=== PATIENT | female | born 1965 | race Caucasian/White ===

== ENCOUNTER 2020-08-06 15:32 | Outpatient (CLI) | payer OTHER, SELFPAY ==
--- NOTE | ~2020-08-06 | MM_ITS ---
EXAMINATION: MM screening nereida BI w ciro HISTORY: Screening mammogram TECHNIQUE: Craniocaudal and mediolateral oblique 3-D tomosynthesis images were obtained and synthetic 2-D images were generated. CAD analysis was submitted and interpreted. COMPARISON: August 01, 2018, July 28, 2017 bilateral digital screening mammogram examinations BREAST PARENCHYMAL COMPOSITION: The breasts are extremely dense, which lowers the sensitivity of mamm ography. FINDINGS: There is no evidence of suspicious mass, calcification, or architectural distortion to sugg est malignancy in either breast. There has been no suspicious interval change. IMPRESSION: 1. No mammographic evidence of malignancy. 2. Recommend routine screening mammography in one year. BI-RADS Category 1: Negative Reviewed, dictated and finalized at location A. 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
== END 2020-08-06 15:33 | disposition home or self-care (01) ==
PROVIDERS: PCP Family Medicine; Visit Provider Family Medicine
DX: Z12.31 Encounter for screening mammogram for malignant neoplasm of breast (principal)
CPT/HCPCS: 77063; 77067

== ENCOUNTER 2021-07-02 08:42 | Outpatient (CLI) | payer OTHER, SELFPAY ==
--- NOTE | ~2021-07-02 | XR_ITS ---
XR chest 2V DATE: 07/02/2021 08:54 INDICATION: Chest pain TECHNIQUE: PA and lateral views COMPARISON: None FINDINGS: Bilateral hyperinflation. No pulmonary infiltrate or consolidation, pleural effusion or pul monary vascular congestion or pneumothorax. Normal heart size. No hilar or mediastinal enlargement. Included skeletal structures are unremarkable. IMPRESSION: Moderate hyperinflation; no active cardiopulmonary disease Reviewed, dictated and finalized at location A. 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
== END 2021-07-02 08:43 | disposition home or self-care (01) ==
LOC: ANHIMG 08:45
PROVIDERS: PCP Family Medicine; Visit Provider Family Medicine
DX: R07.9 Chest pain, unspecified (principal); R91.8 Other nonspecific abnormal finding of lung field
CPT/HCPCS: 71046

== ENCOUNTER 2021-08-24 10:45 | Outpatient (CLI) | payer OTHER, SELFPAY ==
--- NOTE | ~2021-08-24 | MM_ITS ---
EXAMINATION: MM screening [facility] BI w ciro HISTORY: Screening mammogram TECHNIQUE: Craniocaudal and mediolateral oblique 3-D tomosynthesis images were obtained and synthetic 2-D images were generated. CAD analysis was submitted and interpreted. COMPARISON: 08/06/2020, 08/01/2018 BREAST PARENCHYMAL COMPOSITION: The breasts are extremely dense, which lowers the sensitivity of mamm ography. FINDINGS: There is no evidence of suspicious mass, calcification, or architectural distortion to sugg est malignancy in either breast. There has been no suspicious interval change. IMPRESSION: 1. No mammographic evidence of malignancy. 2. Recommend routine screening mammography in one year. BI-RADS Category 1: Negative Reviewed, dictated and finalized at location A.
== END 2021-08-24 10:46 | disposition home or self-care (01) ==
LOC: ANHIMG 10:47
PROVIDERS: PCP Family Medicine; Visit Provider Family Medicine
DX: Z12.31 Encounter for screening mammogram for malignant neoplasm of breast (principal)
CPT/HCPCS: 77063; 77067

== ENCOUNTER 2021-09-02 01:02 | Day surgery (SDC) | payer OTHER, SELFPAY ==
[2021-08-19 14:05] VITALS: BMI 19.3
[2021-09-02 06:51] VITALS: BP 100/66; PULSE 88; RESP 18; TEMP 36.1; O2SAT 96
--- NOTE | 2021-09-02 06:57 | WPDANESEPPF ---
Anes - Initial Pre Proc Eval Procedure: Operation Date: 09/02/21 08:00 Proposed Procedures p Screening Colonoscopy - Bruce Ludwig MD Date/Time: 09/02/21 06:57 Surgeon: Bruce Ludwig MD Pre Op Diagnosis: fam hx of colon ca Patient Data Age: 55 Gender: F Height: 1.57 m Weight: 46.7 kg Last Vital Signs Temp 36.1 C L 09/02/21 06:51 Pulse 88 09/02/21 06:51 Resp 18 09/02/21 06:51 BP 100/66 09/02/21 06:51 Pulse Ox 96 09/02/21 06:51 Allergies Allergy/AdvReac Type Severity Reaction Status Date / Time No Known Allergies Allergy Verified 09/02/21 06:50 Home Medications Medication Instructions Recorded Confirmed Type No Home Medications 08/19/21 08/19/21 History Patient hx anesthesia problems: none Family hx anesthesia problems: none Results Review: All pre-operative results and documents have been reviewed as part of the pre-operative evaluation. [facility] Surgical History Surgical History H/O: hysterectomy (~2013) Family History Family History Mother Family history of elevated blood lipids Sibling Family history of elevated blood lipids Father Family history of elevated blood lipids Family history of malignant neoplasm Grandparent Family history of malignant neoplasm Other Family history of hypercholesterolemia Social History Social History Smoking status: Never smoker Alcohol intake: current Drinks per week: 2 Living arrangements: alone Spiritual care concerns: No Anes - Eval Final PreProcedure Day of Procedure 09/02/21 06:57 Patient weight: normal Heart: regular rate and rhythm Lungs: clear to auscultation and normal air movement Airway: Mallampati scale class II Neurological: alert and oriented Last oral intake: >/= 8 hours ASA classification: II Emergent: no Anesthetic plan: proceed Anesthesia type and monitoring: general GIVS and standard monitoring Results Review: All pre-operative results and documents have been reviewed as part of the pre-operative evaluation. Informed Consent: The patient's anesthetic plan and its attendant risks and benefits were discussed with the patient/family/POA. Questions were solicited and answers provided to the satisfaction of the patient/family/POA.
[2021-09-02] MEDS: LACTATED RINGERS 1,000 ML 150 ML IV CONT (07:00)
--- NOTE | 2021-09-02 07:23 | P.CONGI_ITS ---
Assessment and Plan Assessment and plan (1) Family history of colon cancer in mother: Code(s): Z80.0 - Family history of malignant neoplasm of digestive organs Status: Acute Assessment and Plan: Patient's mother and paternal grandmother have had colon cancer. Plan is for surveillance colonoscopy now and consider this at 5 year intervals in the future. GI Consult Note Consult date/time: 09/02/21 07:23 HPI: Iris Raymundo is a 55 year old female Presents for screening colonoscop y. Patient reports that her current weight appetite and bowel movements are normal. She denies abdominal pain. She has had no bleeding. Family history is significant that her mother had colon cancer as well as her paternal grandmother patient had last colonoscopy 2016 was reported as unremarkable. She presents today for screening colonoscopy. Review of Systems Review of Systems: All systems reviewed & are unremarkable except as noted in HPI and below PMFSH Surgical History Surgical History H/O: hysterectomy (~2013) Family History Family History Mother Family history of elevated blood lipids Sibling Family history of elevated blood lipids Father Family history of elevated blood lipids Family history of malignant neoplasm Grandparent Family history of malignant neoplasm Other Family history of hypercholesterolemia Social History Social History Smoking status: Never smoker Alcohol intake: current Drinks per week: 2 Living arrangements: alone Spiritual care concerns: No Meds Home Medications and Allergies Home Medications Medication Instructions Recorded Confirmed Type No Home Medications 08/19/21 08/19/21 History Allergies Allergy/AdvReac Type Severity Reaction Status Date / Time No Known Allergies Allergy Verified 09/02/21 06:50 Vital Signs Vital Signs - 24 hr 09/02/21 06:51 Temperature 97.0 F L Pulse Rate 88 Respiratory Rate 18 Blood Pressure 100/66 Pulse Oximetry 96 Exam Narrative: Physical exam reveals patient to be alert. Vital signs stable. HEENT exam is unremarkable. Patient is anicteric. Lungs are clear to auscultation and percussion. Heart is without murmur or extra sounds. Abdominal exam bowel sounds are present soft nontender with no organomegaly. Digital external rectal exam is normal.
[2021-09-02 08:28] VITALS: BP 98/61; PULSE 74; RESP 21; O2SAT 100
[2021-09-02 08:38] VITALS: BP 109/66; PULSE 73; RESP 19; O2SAT 100
[2021-09-02 08:48] VITALS: BP 108/75; PULSE 73; RESP 23; O2SAT 99
== END 2021-09-02 08:53 | disposition home or self-care (01) ==
PROVIDERS: PCP Family Medicine; Visit Provider Internal Medicine Gastroenterology
PROC: 0DJD8ZZ Inspection of Lower Intestinal Tract, Via Natural or Artificial Opening Endoscopic (ICD-10-PCS; CPT 45378; principal; 2021-09-02 08:00)
DX: Z12.11 Encounter for screening for malignant neoplasm of colon (principal); K64.8 Other hemorrhoids; K57.30 Diverticulosis of large intestine without perforation or abscess without bleeding; Z80.0 Family history of malignant neoplasm of digestive organs
CPT/HCPCS: 45378; J2704; J7120

== ENCOUNTER 2022-01-27 09:40 | Outpatient (CLI) | payer OTHER, SELFPAY ==
--- NOTE | 2022-01-27 09:43 | EST_ITS ---
Patient Info Name: Iris Raymundo Age: 56 years : 1965 Gender: Female Ht: 62 in Wt: 110 lbs BSA: 1.48 m2 HR: 72 bpm Exam Date: 01/27/2022 10:12 AM [facility] Patient Status: Outpatient Admit Date: 01/27/2022 Staff Ordering Physician: Ricco Hughes PA-C Rehabilitation Consultant: Kezia Wright RDCS Attending Provider: Ricco Hughes PA-C Referring Physician: Ellen RICHARDS; Exercise Technologist: Ellyn Willard CT Exercise Physician: Tod Cardona DO Exam Type: CA stress echo Study Info Indications R07.9 - Chest pain, unspecified Treadmill exercise stress echocardiogram is performed. Summary 1. 1. Negative Kush exercise stress test for ischemic ST changes by ECG criteria. 2. 2. Excellent functional capacity, achieving 10 METs of workload. 3. 3. Appropriate HR response to exercise. 4. 4. Appropriate HR recovery at 1 minute post exercise. 5. 5. Negative stress echocardiogram for ischemia by wall motion analysis. 6. 6. Patient informed of the above results. Stress Echo Findings Left Ventricle Appropriate increase in LV endocardial thickening with systole. Appropriate augmentation of contractility with systole. No wall motion abnormality. Left Ventricle Normal LV systolic function, no wall motioni abnormality. Protocol: Kush Stress ECG Details Stage: REST Duration (min): 7 min : 53 sec Speed (mph): 0.0 Grade (%): 0 HR (bpm): 74 SBP (mmHg): 100 DBP (mmHg): 69 METS: --- Stage: REST Duration (min): 25 min : 13 sec Speed (mph): 0.0 Grade (%): 0 HR (bpm): 92 SBP (mmHg): 100 DBP (mmHg): 69 METS: --- Stage: STAGE 1 Duration (min): 1 min : 0 sec Speed (mph): 1.7 Grade (%): 10 HR (bpm): 95 SBP (mmHg): 100 DBP (mmHg): 69 METS: --- Stage: STAGE 1 Duration (min): 2 min : 0 sec Speed (mph): 1.7 Grade (%): 10 HR (bpm): 106 SBP (mmHg): 100 DBP (mmHg): 69 METS: --- Stage: STAGE 1 Duration (min): 3 min : 0 sec Speed (mph): 1.7 Grade (%): 10 HR (bpm): 117 SBP (mmHg): 119 DBP (mmHg): 70 METS: --- Stage: STAGE 2 Duration (min): 1 min : 0 sec Speed (mph): 2.5 Grade (%): 12 HR (bpm): 120 SBP (mmHg): 119 DBP (mmHg): 70 METS: --- Stage: STAGE 2 Duration (min): 2 min : 0 sec Speed (mph): 2.5 Grade (%): 12 HR (bpm): 125 SBP (mmHg): 126 DBP (mmHg): 79 METS: --- Stage: STAGE 2 Duration (min): 3 min : 0 sec Speed (mph): 2.5 Grade (%): 12 HR (bpm): 132 SBP (mmHg): 126 DBP (mmHg): 79 METS: --- Stage: STAGE 3 Duration (min): 1 min : 0 sec Speed (mph): 3.4 Grade (%): 14 HR (bpm): 143 SBP (mmHg): 161 DBP (mmHg): 88 METS: --- Stage: STAGE 3 Duration (min): 2 min : 0 sec Speed (mph): 3.4 Grade (%): 14 HR (bpm): 151 SBP (mmHg): 161 DBP (mmHg): 88 METS: --- Stage: STAGE 3 Duration (min): 3 min : 0 sec Speed (mph): 3.
== END 2022-01-27 09:41 | disposition home or self-care (01) ==
LOC: ANHCARD 09:41
PROVIDERS: PCP Family Medicine; Visit Provider Physician Assistant
DX: R07.9 Chest pain, unspecified (principal)
CPT/HCPCS: 93351

== ENCOUNTER 2022-09-08 08:30 | Outpatient (CLI) | payer OTHER, SELFPAY ==
--- NOTE | ~2022-09-08 | MM_ITS ---
EXAMINATION: MM screening nereida BI w ciro HISTORY: Screening TECHNIQUE: Craniocaudal and mediolateral oblique 3-D tomosynthesis images were obtained and synthetic 2-D images were generated. CAD analysis was submitted and interpreted. COMPARISON: Comparison to multiple prior studies sequentially, with oldest reviewed study dated 04/12. BREAST PARENCHYMAL COMPOSITION: The breasts are extremely dense, which lowers the sensitivity of mamm ography FINDINGS: There is a focal asymmetry upper inner quadrant of the left breast on CC view. The right br east is stable without evidence for malignancy. IMPRESSION: 1. New focal left breast asymmetry, upper inner quadrant. 2. Additional mammographic views and possible breast ultrasound are recommended. BI-RADS Category 0: Incomplete: Needs additional imaging evaluation. Reviewed, dictated and finalized at location A. IMPRESSION: 1. New focal left breast asymmetry, upper inner quadrant. 2. Additional mammographic views and possible breast ultrasound are recommended . BI-RADS Category 0: Incomplete: Needs additional imaging evaluation.
== END 2022-09-08 08:31 | disposition home or self-care (01) ==
PROVIDERS: PCP Family Medicine; Visit Provider Family Medicine
DX: Z12.31 Encounter for screening mammogram for malignant neoplasm of breast (principal); R92.8 Other abnormal and inconclusive findings on diagnostic imaging of breast
CPT/HCPCS: 77063; 77067

== ENCOUNTER 2022-10-04 11:38 | Outpatient (CLI) | payer OTHER, SELFPAY ==
--- NOTE | ~2022-10-04 | MMUS_ITS ---
EXAMINATION: MM diagnostic nereida LT w ciro, US breast LT complete HISTORY: New upper inner quadrant left breast mammographic asymmetry TECHNIQUE: Additional 3-D tomosynthesis images of the left breast were performed and synthetic 2-D im ages were generated. CAD analysis was submitted and interpreted. High resolution left complete breast ultrasound examination including all four quadrants and subareolar area was performed. COMPARISON: 09/08/2022 bilateral screening mammogram FINDINGS: MAMMOGRAPHIC FINDINGS: There is extremely dense breast tissue, which may obscure masses. No suspicious mass, architectural distortion, malignant calcification, skin thickening or retraction of the left breast is detected. ULTRASOUND: 12:00 near nipple: There is an 11 mm simple cyst. 3:00 2 cm from nipple: There is a 5.8 mm simple cyst. 8:00 3 cm from nipple: There is a simple 3.5 mm cyst. No suspicious mass or shadowing of the left breast is detected. IMPRESSION: 1. Benign findings; simple cysts 2. Routine annual mammographic screening is recommended. BIRADS Category 2: Benign Reviewed, dictated and finalized at location A. IMPRESSION: 1. Benign findings; simple cysts 2. Routine annual mammographic screening is recommended. BIRADS Category 2: Benign
== END 2022-10-04 11:39 | disposition home or self-care (01) ==
PROVIDERS: PCP Family Medicine; Visit Provider Family Medicine
DX: N60.02 Solitary cyst of left breast (principal)
CPT/HCPCS: 76641; 77061; 77065; G0279

== ENCOUNTER 2024-01-11 14:42 | Outpatient (CLI) | payer OTHER, SELFPAY ==
--- NOTE | ~2024-01-11 | MM_ITS ---
EXAMINATION: MM screening nereida BI w ciro HISTORY: Screening TECHNIQUE: Craniocaudal and mediolateral oblique 3-D tomosynthesis images were obtained and synthetic 2-D images were generated. CAD analysis was submitted and interpreted. COMPARISON: Comparison to multiple prior studies sequentially, with oldest reviewed study dated 07/28. BREAST PARENCHYMAL COMPOSITION: Dense: The breasts are heterogeneously dense, which may obscure small masses FINDINGS: There is no evidence of suspicious mass, calcification, or architectural distortion to sugg est malignancy in either breast. There has been no suspicious interval change. IMPRESSION: 1. No mammographic evidence of malignancy. 2. Recommend routine screening mammography in one year. BI-RADS Category 1: Negative Reviewed, dictated and finalized at location B.
== END 2024-01-11 14:43 | disposition home or self-care (01) ==
LOC: ANHIMG 14:43
PROVIDERS: Visit Provider Family Medicine
DX: Z12.31 Encounter for screening mammogram for malignant neoplasm of breast (principal)
CPT/HCPCS: 77063; 77067

== ENCOUNTER 2025-02-28 09:29 | Outpatient (CLI) | payer OTHER, SELFPAY ==
--- NOTE | ~2025-02-28 | MM_ITS ---
EXAMINATION: MM screening nereida BI w ciro HISTORY: Screening TECHNIQUE: Craniocaudal and mediolateral oblique 3-D tomosynthesis images were obtained and synthetic 2-D images were generated. CAD analysis was submitted and interpreted. COMPARISON: Comparison to multiple prior studies sequentially, with oldest reviewed study dated , 08/01/2018 BREAST PARENCHYMAL COMPOSITION: The breasts are heterogeneously dense, which may obscure small masses. FINDINGS: There is no evidence of suspicious mass, calcification, or architectural distortion to suggest malignancy in either breast. IMPRESSION: 1. No mammographic evidence of malignancy. 2. Recommend routine screening mammography in one year. BI-RADS Category 1: Negative Reviewed, dictated and finalized at location B.
--- OUTSIDE RECORDS SUMMARY | 2025-02-28 09:33 | XMS_ITS | Clinical Summary ---
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 Role Phone Unavailable Primary Care Provider Unavailabl e Social History Tobacco Use Types Packs/Day Years Used Date Smoking Tobacco: Never Assessed Comments Unknown Sex and Gender Information Value Date Recorded Sex Assigned at Not on file Legal Sex Female 11:33 AM CDT Gender Identity Not on file Sexual Orientation Not on file Plan of Treatment Health Maintenance Due Date Last Done Comments Cervical Cancer Screening Pa p Smear (Age 30 to 64) Every 3 Years 1965 Colorectal Cancer Screening Colonoscopy (10 Years) 1965 Annual Physical 09/09/1967 Hepatitis C 1982 DTaP, Tdap and Td Vaccines ( 1 - Tdap) 09/09/1983 Cervical Cancer Screening Pa p with HPV Testing (Age 30 to 64) Every 5 Years 1994 Cervical Cancer Screening with HPV 1994 Mammogram Screening 2004 Pneumococcal Vaccine: 50+ Ye ars (1 of 1 - PCV) 2014 Zoster Vaccines (1 of 2) 2014 COVID-19 Vaccine ( - 2023-2 5 season) 2025 RSV Immunization or 60+ Years (1 - 1-dose 75+ series) 09/09/2039 Meningococcal B Vaccine Aged Out No l onger eligible based on patient's age to complete this topic Meningococcal Vaccine Aged Out No katarina krystal eligible based on patient's age to complete this topic RSV Immunizations Under 20 Months Aged Out No longer eligible based on patient's age to complete this topic
--- OUTSIDE RECORDS SUMMARY | 2025-02-28 09:33 | XMS_ITS | Clinical Summary ---
Author Organization 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 Rodrigo Guerrero is not up to date on screening tests. She is in need of Breast cancer screening, Cholesterol screening and Cervical cancer screening. She is not up to date on needed preventative vaccinations; She is in need of Influenza, Zoster and Covid-19 (booster). We discussed healthy lifestyle habits, educational material has been given. Medications reviewed, changes documented as per the medical record and discussed with patient along with risks vs benefits. Labs as ordered Will get old records Planning on gyne well woman in August Mammogram ordered (also in August) Respiratory symptoms Immunizations Immunization Administration Dates Next Due Influenza, Quadrivalent, Kristine l Culture-based MDCK, Antibiotic Free, Intramuscular 03/07/2019 Influenza, Quadrivalent, Spl it, Preservative Free, Intramuscular 04/01/2021,03/19/2020,05/22/2018 Influenza, Unspecified 04/13/2024 Pneumococcal Conjugate Pcv20 08/30/2022 Tdap 05/22/2018 Surgical History Surgery Date Site/Laterality Comments PARTIAL HYSTERECTOMY Only Ovaries Present. No cervix Family History Medical History Relation Name Comments No Known Problems Brother Diabetes Father Hyperlipidemia Father Cancer Mother Farrah Colon cancer Mother Farrah Hyperlipidemia Mother Farrah Cancer Paternal Grandmother Bernadine Hyperlipidemia Sister 1 Hyperlipidemia Sister 2 Relation Name Status Comments Brother Alive Father Alive Mother Farrah Paternal Grandmother Bernadine Alive Sister 1 Alive Sister 2 Alive Social History Tobacco Use Types Packs/Day Years Used Date Smoking Tobacco: Never Smokeless Tobacco: Never Tobacco Cessation:Counseling Given: Not Answered AUDIT-C Answer Date Recorded Q1: How often do you have a drink containing alc ohol? 2-4 times a month 06/30/2022 Q2: How many drinks containi ng alcohol do you have on a typical day when you are drinking? 3 or 4 06/30/2022 Q3: How often do you have si x or more drinks on one occasion? 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 Not on file Not on file Not on file Obstetrics History Last Filed Vital Signs Vital Sign Reading Time Taken Comments Blood Pressure 98/62 10/10/2024 9:39 AM CDT Pulse 77 10/10/2024 9:39 AM CDT Temperature 36.6 C (97.8 F) 10/10/2024 9:39 AM CDT Respiratory Rate 14 08/29/2024 9:56 AM CDT Oxygen Saturation 99% 10/10/2024 9:39 AM CDT Inhaled Oxygen Concentration - - Weight 53.1 kg (117 lb) 10/10/2024 9:39 AM CDT Height 160 cm (5' 3) 10/10/2024 9:39 AM CDT Body Mass Index 20.73 10/10/2024 9:39 AM CDT Plan of Treatment Health Maintenance Due Date Last Done Comments Hepatitis B Screening 1982 Breast Cancer Screening-Mammogram 01/10/2025 01/11/2024, 2022, 08/24/2021 Covid-19 Vaccine ( season) 2025 09/03/2020, 08/11/2020 Influenza Vaccine (#1) 2025 4, 04/01/2021, 03/19/2020, Additional history exists Regular Well Visit/Exam 18-64 08/29/2025 08/29/2024 Zoster Vaccine (1 of 2) 08/29/2025 Post poned from 2014 (Insurance / Financial) Cervical Cancer Screening 10/10/2025 10/10/2024, Depression Screening 10/10/2025 10/10/2024, 08/29/2024, 03/01/2024, Additional history exists DTaP/Tdap/Td Vaccine (2 - Td or Tdap) 05/22/2028 05/22/2018 Colon Cancer Screening-Colonoscopy 09/03/2031 09/02/2021 Hepatitis C Screening Completed 06/30/2022 Pneumococcal vaccine <65 Aged Out 08/30/2022 No longer eligible based on patient's age to complete this topic Procedures Procedure Name Priority Date/Time Associated Diagnosis Comments PAP AND HIGH RISK HPV, REFLEX TO GENOTYPING Routine 10/10/2024 11:13 AM CDT Cervical cancer screening MAMMOGRAPHY Routine 01/11/2024 2:53 PM CDT HEPATITIS C ANTIBODY Routine 06/30/2022 9:34 AM ASSEMBLER DC FIELD RING Encounter for hepatitis C screening test for low risk patient COLONOSCOPY Routine 09/02/2021 from Last 3 Months or Most Recently Relevant to Health Maintenance Results * Pap and High Risk HPV and Genotyping (Cytology Component) (10/10/2024 11:13 AM CDT) Vaginal (Pap test) 10/10/2024 11:13 AM CDT 10/10/2024 11:13 AM CDT Narrative PATHOLOGY CH - 10/17/2024 2:26 PM CDT [facility] Department of Pathology [address] [place], [place] [id number] Final Report with Addendum Note to Patients: This report may contain a detailed description of human tissue sent by a health care provider to the laboratory for pathologic evaluation. The content of this report is essential for diagnosis and may provide important critical findings. This information may be unfamiliar to patients to review without a medical professional present. It is advised that the patient review this report in the presence of a health care provider who can answer questions and explain the details. Patient Name: RODRIGO GUERRERO Address: [address] [place] [address] [place] [address] Gender: F : 1965 (Age: 59) Service: Location: [facility] #: [id number] Patient Type: SPECIMEN Taken: 10/10/2024 Received: 10/10/2024 Accessioned:: 10/11/2024 Reported: 10/17/2024 Physician(s): Ji Young F.N.P. Diagnosis: SOURCE OF SPECIMEN SCREENING THIN PREP IMAGED PAP w/ HPV: STATEMENT OF ADEQUACY - Specimen satisfactory for evaluation (vaginal pap) GENERAL CATEGORIZATION: - Negative for intraepithelial lesion or malignancy Farrah Bo CT(ASCP)Eden Clemens M.D. Report Electronically Reviewed and Signed Out By Eden Clemens M.D. 10/17/2024 14:26:52Addenda: HPV Test Interpretation (Normal-Negative for High Risk HPV) HPV HR 16 vaginal- Negative HPV HR 18 vaginal- Negative HPV HR non 16/18 vaginal- Negative Comment: The following Other High Risk HPV types were not detected: 31, 33, 35, 39, 45, 51, 52, 56, 58, 59, 66, and 68 ADDITIONAL INFORMATION Testing was performed using the elif HPV assay ([employer] This test has been modified from the snuff packing machine operator's instructions. Its performance characteristics were determined by [facility] in a manner consistent with CLIA requirements. This test has not been cleared or approved by the U.S. Food and Drug Administration. Test Performed by: [address] [address] Tnt Powder Worker: Rodger Shields M.D. Ph.D.; CLIA# [id number] WILLAM Joseph(ASCP)Report Electronically Reviewed and Signed Out By WILLAM Joseph(ASCP) 10/16/2024 09:29:38 Specimen(s) Received: A: SCREENING THIN PREP IMAGED PAP w/ HPV Clinical History: Menstrual History: Hysterectomy Previous history of positive HPV The Pap test is a screening test used to aid in the detection of cervical cancer and its precursors. It should not be the sole means by which malignant and premalignant lesions are diagnosed. Both false negative and false positive results may occur. It also has poor sensitivity for the detection of endometrial lesions and should not be used to evaluate suspected endometrial abnormalities. For these reasons it is most important to obtain Pap tests at regular intervals. The performance characteristics of some immunohistochemical stains, fluorescence in-situ hybridization tests and immunophenotyping by flow cytometry cited in this report (if any) were determined by the Surgical Pathology Department at [facility] as part of an ongoing quality measurement specialist program and in compliance with federally mandated regulations drawn from the Clinical Laboratory Improvement Act of 1988 (CLIA '88). Some of these tests rely on the use of analyte specific reagents and are subject to specific labeling requirements by the US Food and Drug Administration. Such diagnostic tests may only be performed in a facility that is certified by the Department of Health and Human Services as a high complexity laboratory under CLIA '88. The FDA has determined that such clearance or approval is not necessary. This test is used for clinical purposes. It should not be regarded as investigational or for research. Nevertheless, federal rules concerning the medical use of analyte specific reagents require that the following disclaimer be attached to the report: This test was developed and its performance characteristics determined by the Surgical Pathology Department [facility]. It has not been cleared or approved by the U. S. Food and Drug Administration. Jazzmine Winkler NP LAB CYTOLOGY ORDERABLES Final Re sult PATHOLOGY [address] [place] [address] * HM MAMMOGRAPHY (01/11/2024 2:53 PM CDT) Historical Provider HEALTH MAINTENANCE Final Result * Hepatitis C antibody (06/30/2022 9:34 AM ASSEMBLER DC FIELD RING) Hep C Ab Nonreactive Nonreactive [facility] Comment: Interpretive Data Nonreactive: Antibodies to HCV not detected. Does NOT exclude the possibility of recent exposure to HCV. Equivocal: Equivocal for HCV antibodies. Supplemental molecular testing will be automatically performed to determine infection status in accordance with current CDC screening recommendations. Reactive: Positive for HCV antibodies. This may represent current or past HCV infection. Supplemental molecular testing will be automatically performed to determine current infection status in accordance with current CDC screening recommendations. Interpretive data was last revised on 2019. Blood 06/30/2022 9:34 AM ASSEMBLER DC FIELD RING 06/30/2022 3:07 PM ASSEMBLER DC FIELD RING Umer Holland MD LAB MICROBIOLOGY - GENERAL ORDERABLES Final Result [facility] [address] Department of Laboratories [place], [place] [id number] * HM COLONOSCOPY (09/02/2021) Historical Provider HEALTH MAINTENANCE Final Result from Last 3 Months or Most Recently Relevant to Health Maintenance Insurance [facility] CHOICE PLUS [facility] HMO/PPO Address: [facility] [address] [place] [address] [facility] CHOICE PLUS [facility] HMO/PPO Address: [address] [address] [place] [address] [facility] Care Teams Complex Care Nurse Relationship Specialty Start Date End Date Umer Holland MD [address] [place] [address] PCP - General Family Medicine 06/30/22 Bruce Ludwig MD [address] [facility] [address] [place], [place] [id number] Referring Physician Gastroenterology 06/30/22
--- OUTSIDE RECORDS SUMMARY | 2025-02-28 09:33 | XMS_ITS | Clinical Summary ---
Author Organization [facility] Address [address] [place] [address] Phone Care Team Providers Care Sales Correspondence Clerk Name Role Phone Umer Holland MD Primary Care Provider [phone] Social History Tobacco Use Types Packs/Day Years Used Date Smoking Tobacco: Never Assessed Comments Unknown Sex and Gender Information Value Date Recorded Sex Assigned at Not on file Legal Sex Female 11:08 AM CDT Gender Identity Not on file Sexual Orientation Not on file Plan of Treatment Health Maintenance Due Date Last Done Comments Hepatitis C Virus (HCV) Screening 1965 Mammogram 1965 Pap Smear 1985 Cervical Cancer Screening (CCS) 1994 HPV/Cotest 1994 Cologuard 2009 Colonoscopy 2009 Colorectal Cancer Screening 2009 Immunochemical Fecal Occult Blood 2009 Zoster Immunization (1 of 2) 2014 Influenza Immunization (#1) 2025 102 06/2020, 03/19/2020, 03/07/2019, Additional history exists SARS-COV-2 Immunization ( season) 2025 09/03/2020, 08/11/2020 Respiratory Syncytial Virus (RSV) Immunization (Adult) (1 - 1-dose 75+ series) 09/09/2039 DTaP/Tdap/Td Immunization Discontinued 05/22/2018 TdaP Immunization Completed 05/22/2018 Pneumococcal Immunization (50+ years) Completed 08/30/2022 Pneumococcal Immunization Combined Discontinued 08/30/2022 Hepatitis B Immunization Aged Out No longer eligible based on patient's age to complete this topic Human Papillomavirus (HPV) Immunization Aged Out No longer eligible based on patient's age to complete this topic Meningococcal Immunization (ACWY) Aged Out No longer eligible based on patient's age to complete this topic Rotavirus Immunization Aged Out No lo nger eligible based on patient's age to complete this topic Insurance Care Teams Sales Correspondence Clerk Relationship Specialty Start Date End Date Umer Holland MD [address] [place] [address] PCP - General Family Medicine 09/04/23
== END 2025-02-28 09:30 | disposition home or self-care (01) ==
LOC: ANHFOHIMG 09:31
PROVIDERS: PCP Family Medicine; Visit Provider Family Medicine
DX: Z12.31 Encounter for screening mammogram for malignant neoplasm of breast (principal)
CPT/HCPCS: 77063; 77067